=== PATIENT | female | born 1990 | race Caucasian/White ===

== ENCOUNTER 2016-09-17 15:55 | Emergency (ER) | payer MEDICAID ==
[~2016-09-17] VITALS: Ht 152.4 cm; Wt 58.5 kg
[~2016-09-17 15:55] MED LIST: PREN-39 PO
[2016-09-17 15:57] VITALS: Ht 152.4 cm; Wt 58.5 kg
--- NOTE | 2016-09-17 16:25 | ERD ---
ER Documentation Chief Complaint Date/Time DATE: 09/17/16 TIME: 16:24 Chief Complaint Complains of abdominal pain HPI 25-year-old female otherwise healthy complains of epigastric abdominal pain and right flank pain that started yesterday, she describes as achy, moderate, intermittent. She has not had anything for the pain yet. She denies fevers, chills, vomiting, diarrhea. ROS All systems reviewed and are negative except as per history of present illness. Medications Home Meds Active Scripts Omeprazole* (Omeprazole*) 20 Mg Capsule.dr, 20 MG PO DAILY, #60 Prov:SMOOTH GALVAN PA-C 09/17/16 Ranitidine Hcl* (Zantac*) 150 Mg Tablet, 150 MG PO BID Y for EPIGASTRIC PAIN, # 60 TAB Prov:SMOOTH GALVAN PA-C 09/17/16 Reported Medications Vits W-Ca,Fe,Fa(<1MG) ( Vitamins) 1 Tab Tablet, 1 TAB PO 04/30/14 Allergies Allergies: Coded Allergies: No Known Allergy (Unverified , 04/30/14) PMhx/Soc Hx Alcohol Use: No Hx Substance Use: No Hx Tobacco Use: No Smoking Status: Never smoker Physical Exam Vitals Vital Signs Date Time Temp Pulse Resp B/P Pulse Ox O2 Delivery O2 Flow Rate FiO2 09/17/16 15:57 98.0 73 20 146/89 98 Physical Exam General: Well-developed, well-nourished. The patient appears in no acute distress. HEENT: Head is normocephalic, atraumatic. No scleral icterus. Neck: Supple. Nontender. Lungs: Clear to auscultation. Normal air movement. Heart: Regular rate and rhythm. S1 and S2 are normal. No murmurs, gallops, or rubs. Abdomen: Soft, tender in epigastric region, and mild CVA tenderness on right side, nondistended. Bowel sounds are normoactive. Extremities: No clubbing or cyanosis. Normal pulses. Moving extremities x 4. No weakness. Neurologic: Alert and oriented 3. No focal deficits. Skin: Normal turgor. No rash or lesions. Result Diagram: 09/17/16 1640 09/17/16 1640 Results 24 hrs Laboratory Tests Test 09/17/16 16:40 White Blood Count 9.610^3/ul Red Blood Count 4.6710^6/ul Hemoglobin 14.0g/dl Hematocrit 42.2% Mean Corpuscular Volume 90.4fl Mean Corpuscular Hemoglobin 30.0pg Mean Corpuscular Hemoglobin Concent 33.2g/dl Red Cell Distribution Width 12.3% Platelet Count 77794^3/UL Mean Platelet Volume 10.5fl Neutrophils % 56.7% Lymphocytes % 32.9% Monocytes % 8.6% Eosinophils % 0.9% Basophils % 0.4% Nucleated Red Blood Cells % 0.0/100WBC Neutrophils # 5.510^3/ul Lymphocytes # 3.210^3/ul Monocytes # 0.810^3/ul Eosinophils # 0.110^3/ul Basophils # 0.010^3/ul Nucleated Red Blood Cells # 0.010^3/ul Urine Color YELLOW Urine Clarity CLEAR Urine pH 5.5 Urine Specific [employer] 1.025 Urine Ketones NEGATIVE Urine Nitrite NEGATIVE Urine Bilirubin NEGATIVE Urine Urobilinogen 0.2 E.U./dL Urine Leukocyte Esterase NEGATIVE Urine Hemoglobin NEGATIVE Urine Glucose NEGATIVE% Urine Total Protein NEGATIVE Sodium Level 139mmol/L Potassium Level 3.9mmol/L Chloride Level 103mmol/L Carbon Dioxide Level 27mmol/L Anion Gap 13 Blood Urea Nitrogen 12mg/dl Creatinine 0.68mg/dl Glucose Level 127mg/dl Calcium Level 9.5mg/dl Total Bilirubin 0.2mg/dl Direct Bilirubin 0.00mg/dl Indirect Bilirubin 0.2mg/dl Aspartate Amino Transf (AST/SGOT) 33IU/L Alanine Aminotransferase (ALT/SGPT) 57IU/L Alkaline Phosphatase 97IU/L Total Protein 7.8g/dl Albumin 4.9g/dl Globulin 2.90g/dl Albumin/Globulin Ratio 1.68 Lipase 121U/L Current Medications Medications (Trade) Dose Ordered Sig/Bernarda Route PRN Reason Start Time Stop Time Status Last Admin Dose Admin Acetaminophen/ Hydrocodone Bitart ([place] (5/325)) 1 tab ONCE ONCE PO 09/17/16 16:30 1817 16:31 DC 09/17/16 16:40 Miscellaneous Medication (Gi Cocktail (2)) 40 ml ONCE ONCE PO 09/17/16 17:30 17 17:31 DC 09/17/16 17:43 Urine was negative. DIAGNOSTIC IMAGING REPORT Patient: VARSHA COOK : 1990 Age: 25 Sex: F MR #: [id number] DOS: 09/17/16 1721 Ordering MD: SMOOTH GALVAN PA-C Location: [facility] Room/Bed: PROCEDURE: US Abdomen. CLINICAL INDICATION: abdominal pain TECHNIQUE: Multiple real-time images were acquired of the patient's right upper quadrant abdomen and retroperitoneum utilizing a high resolution transducer. COMPARISON: None FINDINGS: The liver demonstrates increased echogenicity. The liver is normal in size and no focal solid lesions are seen. The liver measures 15.4 cm in length. The portal vein is patent with normal direction of flow. No intrahepatic biliary dilatation is seen. No gallstones are identified within the gallbladder. There is no pericholecystic fluid or gallbladder wall thickening. The common bile duct measures 2.6 mm in maximal dimension. The visualized portions of the pancreas are unremarkable. The tail of the pancreas is not seen. No free fluid is identified. The right kidney is normal in size, and demonstrate normal echogenicity and cortical thickness. The right kidney measures 9.1 cm in long dimension. There is no evidence of hydronephrosis. There are no kidney stones. RPTAT: AA IMPRESSION: Fatty infiltration of the liver. No evidence of gallstones. .Roderick Conn MD, MD Date Time Electronically viewed and signed by .Roderick Conn MD, on 09/17/2016 17: 43 .S/ CC: SMOOTH GALVAN PA-C Procedures/MDM ED course: Blood and urine were obtained. The patient was medicated with [place] for pain.' She still complained of pain, therefore was given a GI cocktail, she states that her pain drastically improved. Serial abdominal examinations were done, she was feeling much better. MDM: 25-year-old female complains of epigastric and right flank pain that started yesterday, patient's abdominal examination shows epigastric tenderness. Labs were obtained, as there is no evidence of leukocytosis, no transaminitis , no evidence of pancreatitis. Urine was negative for infection. At this time CT imaging radiation risks likely outweigh the benefits, suspicion for appendicitis is low, bowel obstruction, kidney stones. I believe that her symptoms are likely from gastritis versus GERD as she responded well to a GI cocktail. She was informed that she has hepatic steatosis that was seen on ultrasound, however no gallstones. She was given dietary precautions, and will be given ranitidine and omeprazole for home. She is to return for any worsening or new symptoms. Departure Diagnosis: Primary Impression: Abdominal pain Condition: SMOOTH Keen PA-C Sep 17, 2016 16:25
[2016-09-17] MEDS ORDERED: HYDROCODONE/APAP (5/325) TAB PO ONE (16:30)
[2016-09-17 16:43] LABS: ADD SCAN DIFF NO
[2016-09-17 16:45] LABS: BASOPHILS % 0.4 % (0.0-2.0); EOSINOPHILS # 0.1 10^3/ul (0.0-0.5); EOSINOPHILS % 0.9 % (0.0-7.0); HEMATOCRIT 42.2 % (37.0-47.0); LYMPHOCYTES # 3.2 10^3/ul (0.8-2.9); LYMPHOCYTES % 32.9 % (15.0-51.0); MEAN CORPUSCULAR HGB CONC 33.2 g/dl (32.0-37.0); MEAN CORPUSCULAR VOLUME 90.4 fl (82.0-101.0); MEAN PLATELET VOLUME 10.5 fl (7.4-10.4); MONOCYTE # 0.8 10^3/ul (0.3-0.9); MONOCYTES % 8.6 % (0.0-11.0); NEUTROPHIL # 5.5 10^3/ul (1.6-7.5); NEUTROPHILS % 56.7 % (39.0-77.0); PLATELET COUNT 236 10^3/UL (140-415); RED BLOOD COUNT 4.67 10^6/ul (4.20-5.40); RED CELL DISTRIBUTION WIDTH 12.3 % (11.5-14.5); WHITE BLOOD COUNT 9.6 10^3/ul (4.8-10.8)
[2016-09-17 17:03] LABS: ADD UMIC NO; UR BILIRUBIN (Dip) NEGATIVE (NEGATIVE); UR BLOOD (Dip) NEGATIVE (NEGATIVE); UR CLARITY CLEAR (CLEAR); UR COLOR YELLOW (YELLOW); UR GLUCOSE (Dip) NEGATIVE (NEGATIVE); UR KETONES (Dip) NEGATIVE (NEGATIVE); UR LEUKOCYTE ESTERASE (Dip) NEGATIVE (NEGATIVE); UR NITRITE (Dip) NEGATIVE (NEGATIVE); UR TOTAL PROTEIN (Dip) NEGATIVE (NEGATIVE); UR UROBILINOGEN (Dip) 0.2 E.U./dL (0.1-1.0)
[2016-09-17 17:05] LABS: ALBUMIN 4.9 g/dl (3.3-4.9); ALBUMIN/GLOBULIN RATIO 1.68; BILIRUBIN,INDIRECT 0.2 mg/dl (0-1.1); BILIRUBIN,TOTAL 0.2 mg/dl (0.2-1.3); CALCIUM 9.5 mg/dl (8.4-10.2); CREATININE 0.68 mg/dl (0.44-1.00); POTASSIUM 3.9 mmol/L (3.5-5.1); TOTAL PROTEIN 7.8 g/dl (6.1-8.1)
[2016-09-17] MEDS ORDERED: LIDOCAINE/MYLANTA 40 ML BTL PO ONE (17:30)
[2016-09-17] MEDS ORDERED: RANI150T9 PO (17:44)
[2016-09-17] MEDS ORDERED: OMEP20CA16 PO (17:44)
--- NOTE | 2016-09-17 17:44 | RADRPT ---
PROCEDURE: US Abdomen. CLINICAL INDICATION: abdominal pain TECHNIQUE: Multiple real-time images were acquired of the patient's right upper quadrant abdomen a nd retroperitoneum utilizing a high resolution transducer. COMPARISON: None FINDINGS: The liver demonstrates increased echogenicity. The liver is normal in size and no focal solid lesio ns are seen. The liver measures 15.4 cm in length. The portal vein is patent with normal direction o f flow. No intrahepatic biliary dilatation is seen. No gallstones are identified within the gallbladder. There is no pericholecystic fluid or gallbladd er wall thickening. The common bile duct measures 2.6 mm in maximal dimension. The visualized portions of the pancreas are unremarkable. The tail of the pancreas is not seen. No free fluid is identified. The right kidney is normal in size, and demonstrate normal echogenicity and cortical thickness. The right kidney measures 9.1 cm in long dimension. There is no evidence of hydronephrosis. There are no kidney stones. RPTAT: AA IMPRESSION: Fatty infiltration of the liver. No evidence of gallstones. .Roderick Conn MD, Date Time Electronically viewed and signed by .Roderick Conn MD, on 09/17/2016 17:43 .S/
== END 2016-09-17 17:52 | disposition home or self-care (01) ==
LOC: FTE 15:55
DX: R10.13 Epigastric pain (principal)
CPT/HCPCS: 36415; 76705; 80053; 81003; 83690; 85025; Z7502; Z7610

== ENCOUNTER → 2017-02-05 22:49 | Emergency (ER) | END | disposition left against medical advice (07) ==

== ENCOUNTER 2017-09-05 03:42 | Emergency (ER) | END 2017-09-05 05:56 | disposition home or self-care (01) ==

== ENCOUNTER 2017-12-21 20:45 | Emergency (ER) | END 2017-12-22 01:19 | disposition home or self-care (01) ==

== ENCOUNTER 2018-05-19 10:28 | Emergency (ER) | payer MEDICAID ==
[~2018-05-19] VITALS: Ht 157.5 cm; Wt 59.5 kg
[~2018-05-19 10:28] MED LIST changes: +ACET500C5 PO; +CYCL10TA7 PO; +RANI150T35 PO
[2018-05-19 10:33] VITALS: BP 119/70; PULSE 82; RESP 18; Ht 157.5 cm; Wt 59.5 kg
--- NOTE | 2018-05-19 10:59 | ERD ---
ER Documentation Chief Complaint Chief Complaint lt calf pain x 1 week , 4 weeks preg HPI 27-year-old female, presents emergency department, complaining of persistent left calf pain for 1 week. The pain is described as dull, deep, 4/10. No medications taken for pain. The patient is currently 4 weeks , she denies any trauma, no recent prolonged traveling. No personal or family history of DVT or pulmonary embolism, however, the patient is concerned about a possible blood clot. She denies chest pain, no shortness of breath. In regards of the , the patient denies abdominal pain, no vaginal bleeding. ROS All systems reviewed and are negative except as per history of present illness. Medications Home Meds Active Scripts Acetaminophen* (Tylenol*) 325 Mg Tablet, 1 TAB PO Q6 PRN for PAIN AND OR ELEVATED TEMP, #20 TAB Prov:DIRK BOLDEN MD 05/19/18 Ranitidine Hcl* (Zantac*) 150 Mg Tablet, 150 MG PO BID PRN for EPIGASTRIC PAIN, #60 TAB Prov:EZEKIEL TORRES MD 05/12/18 Cyclobenzaprine Hcl* (Cyclobenzaprine Hcl*) 10 Mg Tablet, 10 MG PO TID, #15 TAB Prov:AMIRA MACARIO MD 12/22/17 Acetaminophen* (Tylophen*) 500 Mg Capsule, 1 CAP PO Q6H PRN for PAIN AND OR ELEVATED TEMP, #20 CAP Prov:STEFANI VERA NP 09/05/17 Reported Medications Vits W-Ca,Fe,Fa(<1MG) ( Vitamins) 1 Tab Tablet, 1 TAB PO 04/30/14 Allergies Allergies: Coded Allergies: No Known Allergy (Unverified , 05/19/18) PMhx/Soc History of Surgery: Yes ( x1) Anesthesia Reaction: No Hx Neurological Disorder: No Hx Respiratory Disorders: No Hx Cardiac Disorders: No Hx Psychiatric Problems: No Hx Miscellaneous Medical Probl: Yes (gallstones, gastritis) Hx Alcohol Use: No Hx Substance Use: No Hx Tobacco Use: No Smoking Status: Never smoker FmHx Family History: No diabetes, No coronary disease Physical Exam Vitals Vital Signs Date Temp Pulse Resp B/P (MAP) Pulse Ox O2 O2 Flow FiO2 Time Delivery Rate 05/19/18 98.6 82 18 119/70 100 10:33 (86) Physical Exam Const: No acute distress Head: Atraumatic Eyes: Normal Conjunctiva ENT: Normal External Ears, Nose and Mouth. Neck: Full range of motion. No meningismus. Resp: Clear to auscultation bilaterally Cardio: Regular rate and rhythm, no murmurs Abd: Soft, non tender, non distended. Normal bowel sounds Skin: No petechiae or rashes Back: No midline or flank tenderness Ext: No cyanosis, or edema Neur: Awake and alert Psych: Normal Mood and Affect Results 24 hrs DIAGNOSTIC IMAGING REPORT Patient: VARSHA COOK : 1990 Age: 27 Sex: F MR #: [id number] DOS: 05/19/18 1058 Ordering MD: DRIK BOLDEN MD Location: [facility] Room/Bed: PROCEDURE: US Lower extremity Venous. CLINICAL INDICATION: Pain and swelling, popliteal pain TECHNIQUE: Multiple sonographic images of the left lower extremity deep venous system was obtained utilizing grayscale, color-flow, compressive sonography and doppler imaging with augmentation. The images were reviewed on a PACS workstation. COMPARISON: None. FINDINGS: There is normal compressibility and flow within the left common femoral, deep f emoral, superficial femoral, posterior tibial, peroneal and popliteal veins. IMPRESSION: No sonographic evidence for deep venous thrombosis. No sonographic abnormalities are identified in the area of pain in the left calf. RPTAT:AAJJ Physician J Carlos Date Time Electronically viewed and signed by Loco Ramírez Physician on 05/19/2018 12:20 MC/ CC: DIRK BOLDEN MD [phone] Departure Diagnosis: Primary Impression: Pain of left leg Additional Impression: Condition: Stable Additional Instructions: Muchas andrey por [facility] para stuart servicio. Esperamos que en stuart visita a la dagmar de emergencia stuart problema medico haya sido solucionado y que se sienta mucho mejor. Para estar seguros que stuart mejoria sigue en proceso, le pedimos el favor de hacer corby emerson de seguimiento medico con stuart doctor primario en los proximos 2-4 chowdhury. Lleve con usted estos documentos y las medicinas recetadas. Si aubrie sintomas empeoran, NO SE ESPERE, por favor regrese a dagmar de emergencia INMEDIATAMENTE. En lan que usted no tenga un mdico de atencin primaria: Llame al mdico o clnica comunitaria de referencia que aparece abajo elissa las horas de consultorio para hacer corby emerson para que le vean. CLINICAS: [facility] [phone] [address] [phone] [facility] [phone] [facility] [phone] [address] [facility] [phone] [address] [facility] [phone] DIRK DUMONT MD May 19, 2018 10:59
[2018-05-19] MEDS ORDERED: ACET325T33 PO (12:25)
== END 2018-05-19 13:02 | disposition home or self-care (01) ==
LOC: FTE 10:28
DX: O99.89 Other specified diseases and conditions complicating pregnancy, childbirth and the puerperium (principal); M79.605 Pain in left leg; Z3A.01 Less than 8 weeks gestation of pregnancy
CPT/HCPCS: 93971; Z7502

== ENCOUNTER 2018-07-07 17:05 | Inpatient (IN) | payer MEDICAID ==
[~2018-07-07] VITALS: Ht 152.4 cm; Wt 57.3 kg
[~2018-07-07 17:05] MED LIST changes: +ACET325T33 PO
[2018-07-07] MEDS ORDERED: SOD CHLORIDE 0.9% 1,000 ML IV STA (17:17)
[2018-07-07] MEDS ORDERED: METOCLOPRAMIDE 10 MG INJ IV STA (17:17)
--- NOTE | 2018-07-07 17:48 | ERD ---
ER Documentation Chief Complaint Chief Complaint c/o right upper abd pain with active vomiting. 10 weeks HPI 27-year-old female 12 weeks presenting with epigastric and right upper quadrant abdominal pain that started today with associated nausea and vomiting. No fevers and chills. She states that she has a history of gallstones and that this feels like her gallstones. She has no diarrhea, hematochezia, melena, or constipation. Her pain is constant, no alleviating factors. Worse with oral intake. ROS All systems reviewed and are negative except as per history of present illness. Medications Home Meds Reported Medications Vit No.124/Iron/FA ( Vitamin Tablet) 1 Each Tablet, 1 EACH PO DAILY, TAB 07/07/18 Discontinued Reported Medications Vits W-Ca,Fe,Fa(<1MG) ( Vitamins) 1 Tab Tablet, 1 TAB PO 04/30/14 Discontinued Scripts Acetaminophen* (Tylenol*) 325 Mg Tablet, 1 TAB PO Q6 PRN for PAIN AND OR ELEVATED TEMP, #20 TAB Prov:DIRK BOLDEN MD 05/19/18 Ranitidine Hcl* (Zantac*) 150 Mg Tablet, 150 MG PO BID PRN for EPIGASTRIC PAIN, #60 TAB Prov:EZEKIEL TORRES MD 05/12/18 Cyclobenzaprine Hcl* (Cyclobenzaprine Hcl*) 10 Mg Tablet, 10 MG PO TID, #15 TAB Prov:AMIRA MACARIO MD 12/22/17 Acetaminophen* (Tylophen*) 500 Mg Capsule, 1 CAP PO Q6H PRN for PAIN AND OR ELEVATED TEMP, #20 CAP Prov:STEFANI VERA NP 09/05/17 Allergies Allergies: Coded Allergies: No Known Allergy (Unverified , 07/07/18) PMhx/Soc History of Surgery: Yes ( x1) Anesthesia Reaction: No Hx Neurological Disorder: No Hx Respiratory Disorders: No Hx Cardiac Disorders: No Hx Psychiatric Problems: No Hx Miscellaneous Medical Probl: Yes (gallstones, gastritis) Hx Alcohol Use: No Hx Substance Use: No Hx Tobacco Use: No Smoking Status: Never smoker FmHx Family History: No diabetes Physical Exam Vitals Vital Signs Date Temp Pulse Resp B/P (MAP) Pulse Ox O2 O2 Flow FiO2 Time Delivery Rate 07/07/18 98.3 99 20 105/74 100 Room Air 19:33 (84) 07/07/18 91 17 96/67 (77) 100 Room Air 18:23 07/07/18 99.5 111 20 130/76 98 17:13 (94) Physical Exam Const: Actively retching, nontoxic Head: Atraumatic Eyes: Normal Conjunctiva ENT: Normal External Ears, Nose and Mouth. Neck: Full range of motion. No meningismus. Resp: Clear to auscultation bilaterally Cardio: Regular rate and rhythm, no murmurs Abd: Soft, epigastric and right upper quadrant tenderness to palpation with positive Green sign. No McBurney's point tenderness. Gravid., No lower abdominal tenderness. Normal bowel sounds Skin: No petechiae or rashes Back: No midline or flank tenderness Ext: No cyanosis, or edema Neur: Awake and alert Psych: Normal Mood and Affect Result Diagram: 07/07/18 1738 07/07/18 1738 Results 24 hrs Laboratory Tests Test 07/07/18 17:25 07/07/18 17:30 07/07/18 17:38 Urine Color YELLOW Urine Clarity CLOUDY Urine pH 5.0 Urine Specific [place] 1.027 Urine Ketones TRACE mg/dL Urine Nitrite NEGATIVE mg/dL Urine Bilirubin NEGATIVE mg/dL Urine Urobilinogen NEGATIVE mg/dL Urine Leukocyte Esterase NEGATIVE [place]/ul Urine Microscopic RBC 39 /HPF Urine Microscopic WBC 0 /HPF Urine Squamous Epithelial Cells MODERATE /HPF Urine Calcium Oxalate Crystals MANY /HPF Urine Mucus FEW /HPF Urine Hemoglobin NEGATIVE mg/dL Urine Glucose NEGATIVE mg/dL Urine Total Protein NEGATIVE mg/dl POC Beta HCG, Qualitative POSITIVE White Blood Count 10.0 10^3/ul Red Blood Count 4.02 10^6/ul Hemoglobin 12.5 g/dl Hematocrit 36.1 % Mean Corpuscular Volume 89.8 fl Mean Corpuscular Hemoglobin 31.1 pg Mean Corpuscular 34.6 g/dl Hemoglobin Concent Red Cell Distribution Width 12.2 % Platelet Count 217 10^3/UL Mean Platelet Volume 10.1 fl Immature Granulocytes % 0.400 % Neutrophils % 48.5 % Lymphocytes % 36.2 % Monocytes % 7.4 % Eosinophils % 6.9 % Basophils % 0.6 % Nucleated Red Blood Cells % 0.0 /100WBC Immature Granulocytes # 0.040 10^3/ul Neutrophils # 4.9 10^3/ul Lymphocytes # 3.6 10^3/ul Monocytes # 0.7 10^3/ul Eosinophils # 0.7 10^3/ul Basophils # 0.1 10^3/ul Nucleated Red Blood Cells # 0.0 10^3/ul Sodium Level 139 mmol/L Potassium Level 3.4 mmol/L Chloride Level 107 mmol/L Carbon Dioxide Level 22 mmol/L Anion Gap 10 Blood Urea Nitrogen 9 mg/dl Creatinine 0.52 mg/dl Est Glomerular Filtrat > 60 mL/min Rate mL/min Glucose Level 115 mg/dl Calcium Level 9.7 mg/dl Total Bilirubin 0.3 mg/dl Direct Bilirubin 0.00 mg/dl Indirect Bilirubin 0.3 mg/dl Aspartate Amino Transf (AST/SGOT) 88 IU/L Alanine 215 IU/L Aminotransferase (ALT/SGPT) Alkaline Phosphatase 105 IU/L Total Protein 7.3 g/dl Albumin 3.9 g/dl Globulin 3.40 g/dl Albumin/Globulin Ratio 1.14 Lipase 256 U/L Current Medications Medications Dose Sig/Bernarda Start Time Status Last (Trade) Ordered Route PRN Stop Time Admin Dose Reason Admin Sodium 1,000 ml @ Q1H STAT 07/07/18 DC 07/07/18 Chloride 1,000 mls/hr IV 17:17 07/07/18 17:34 18:16 10 mg ONCE STAT 07/07/18 DC 07/07/18 Metoclopramid IV 17:17 07/07/18 17:34 e HCl 17:18 (Reglan) Ondansetron 4 mg BRIDGE ORDER 07/07/18 HCl (Zofran PRN IV 19:30 07/08/18 Inj) NAUSEA/VOMITI 19:29 NG 650 mg ER BRIDGE 07/07/18 Acetaminophen PRN PO 19:30 07/08/18 (Tylenol .MILD PAIN 19:29 Tab) 1-3 OR TEMP IV Flush 3 ml PER 07/07/18 (NS 3 ml) PROTOCOL IV 20:00 Morphine 2 mg Q4H PRN 07/07/18 Sulfate IV .SEVERE 20:00 (morphine) PAIN 7-10 Procedures/MDM EMERGENT LABS AND DIAGNOSTIC STUDIES: Lab Results above were reviewed and interpreted by me. CBC: no anemia or evidence of infection CMP: Transaminitis, new since prior visit. No evidence of clinically significant electrolyte abnormality, acidosis, renal failure, hypoglycemia Lipase: no evidence of pancreatitis UA: no evidence of infection Radiology Results as interpreted by Radiology below were reviewed by Manfred Pinedo MD: Ultrasound right upper quadrant: Evidence of CBD dilation, no evidence of minal cystitis Initial Nursing notes reviewed. Previous Medical Records requested via the Electronic Health Record. EMERGENCY DEPARTMENT COURSE / MEDICAL DECISION MAKING: patient is presenting with right upper quadrant pain and vomiting, concerning for possible acute cholecystitis versus symptomatic gallstones versus choledocholithiasis versus pancreatitis. Vitals were notable for tachycardia. IV fluids were given. Antiemetics given as well with improvement of symptoms. Workup shows evidence of CBD dilation, concerning for choledocholithiasis. Patient will be admitted to the hospitalist for further workup. Accepting Care Team: Current data and ongoing care discussed. Time: Time of admission Primary Provider: Dr. Bergman Consulting: none Outstanding Data: none Departure Diagnosis: Primary Impression: Choledocholithiasis LES PINEDO MD Jul 07, 2018 17:48
[2018-07-07] MEDS ORDERED: PREN-93 PO (18:11)
[2018-07-07] MEDS ORDERED: ACETAMINOPHEN 325 MG TAB PO PRN (19:30)
[2018-07-07] MEDS ORDERED: ONDANSETRON 4 MG INJ IV PRN (19:30)
--- NOTE | 2018-07-07 19:37 | HP ---
Date/Time of Note Date/Time of Note DATE: 07/07/18 TIME: 19:34 Assessment/Plan VTE Prophylaxis Pharmacological prophylaxis: heparin Lines/Catheters [facility] Saline Lock Assessment/Plan Hospital Course 27 yo female currently presents with abdominal pain - On US found to have gall stones and dilated CBD concerning for minal docholithiasis, however no stone is seen on ultrasound - Given the spontaneous resolution of her symptoms, I wonder if the stone spontaneously passed - No infectious symptoms or imaging findings to suggest cholangitis so no need for abx - Will consult GI for consideration of ERCP - MRCP pending Result Diagram: 07/07/18 1738 07/07/18 1738 Results 24hrs Laboratory Tests Test 07/07/18 17:25 07/07/18 17:30 07/07/18 17:38 Urine Color YELLOW Urine Clarity CLOUDY A Urine pH 5.0 Urine Specific [place] 1.027 Urine Ketones TRACE A Urine Nitrite NEGATIVE Urine Bilirubin NEGATIVE Urine Urobilinogen NEGATIVE Urine Leukocyte Esterase NEGATIVE Urine Microscopic RBC 39 H Urine Microscopic WBC 0 Urine Squamous Epithelial Cells MODERATE Urine Calcium Oxalate Crystals MANY A Urine Mucus FEW A Urine Hemoglobin NEGATIVE Urine Glucose NEGATIVE Urine Total Protein NEGATIVE POC Beta HCG, Qualitative POSITIVE H White Blood Count 10.0 # Red Blood Count 4.02 L Hemoglobin 12.5 Hematocrit 36.1 L Mean Corpuscular Volume 89.8 Mean Corpuscular Hemoglobin 31.1 Mean Corpuscular Hemoglobin Concent 34.6 Red Cell Distribution Width 12.2 Platelet Count 217 Mean Platelet Volume 10.1 Immature Granulocytes % 0.400 Neutrophils % 48.5 Lymphocytes % 36.2 Monocytes % 7.4 Eosinophils % 6.9 Basophils % 0.6 Nucleated Red Blood Cells % 0.0 Immature Granulocytes # 0.040 H Neutrophils # 4.9 Lymphocytes # 3.6 H Monocytes # 0.7 Eosinophils # 0.7 H Basophils # 0.1 Nucleated Red Blood Cells # 0.0 Sodium Level 139 Potassium Level 3.4 L Chloride Level 107 Carbon Dioxide Level 22 Anion Gap 10 Blood Urea Nitrogen 9 Creatinine 0.52 Est Glomerular Filtrat Rate mL/min > 60 Glucose Level 115 Calcium Level 9.7 Total Bilirubin 0.3 Direct Bilirubin 0.00 Indirect Bilirubin 0.3 Aspartate Amino Transf (AST/SGOT) 88 H Alanine Aminotransferase (ALT/SGPT) 215 H Alkaline Phosphatase 105 Total Protein 7.3 Albumin 3.9 Globulin 3.40 H Albumin/Globulin Ratio 1.14 Lipase 256 HPI/ROS Admit Date/Time Admit Date/Time Hx of Present Illness 27 yo female currently presents with abdominal pain Pain start acutely this afternoon. Was very severe. Nausea/vomiting associated. Came to ED. Here US shows dilated CBD and gall stones. Pain resolved within a few hours. Currently feels completely normal. No fevers, chills. No other complaints ROS Constitutional: no complaints, improved Eyes: no complaints ENT: no complaints Respiratory: no complaints Cardiovascular: no complaints Gastrointestinal: no complaints Genitourinary: no complaints Musculoskeletal: no complaints Skin: no complaints Neurologic: no complaints Endocrine: no complaints Lymphatic: no complaints Psychological: no complaints, nl mood/affect Immunologic: no complaints PMH/Family/Social Past Medical History Medical History: no pertinent history Medications Current Medications Ondansetron HCl (Zofran Inj) 4 mg BRIDGE ORDER PRN IV NAUSEA/VOMITING; Start 07/07/18 at 19:30; Stop 07/08/18 at 19:29 Acetaminophen (Tylenol Tab) 650 mg ER BRIDGE PRN PO .MILD PAIN 1-3 OR TEMP; Start 07/07/18 at 19:30; Stop 07/08/18 at 19:29 Coded Allergies: No Known Allergy (Unverified , 07/07/18) Past Surgical History Past Surgical Hx: no surgical history Family History Significant Family History: no pertinent family hx Social History Alcohol Use: none Smoking Status: Never smoker Drug Use: none Exam/Review of Systems Vital Signs Vitals Vital Signs Date Temp Pulse Resp B/P (MAP) Pulse Ox O2 O2 Flow FiO2 Time Delivery Rate 07/07/18 91 17 96/67 (77) 100 Room Air 18:23 07/07/18 99.5 17:13 Exam Constitutional: alert, oriented, well developed Psych: no complaints, nl mood/affect Head: normocephalic, atraumatic Eyes: nl conjunctiva, EOMI, nl lids, nl sclera, PERRL ENMT: nl external ears & nose, nl lips & teeth, nl nasal mucosa & septum Neck: supple, non-tender Respiratory: clear to auscultation, normal air movement Cardiovascular: regular rate and rhythm, nl pulses Gastrointestinal: soft, nl liver, spleen, non-tender Musculoskeletal: nl extremities to inspection Extremities: normal pulses Neurological: GLOBE CHANGER II-XII intact, nl mental status, nl speech, nl strength Skin: nl turgor; No rash or lesions Lymph: nl lymph nodes ADORE DUNN MD Jul 07, 2018 19:37
[2018-07-07] MEDS ORDERED: NACL 0.9% 3 ML SYG IV SCH (20:00)
[2018-07-07] MEDS ORDERED: morphine 2 MG INJ IV PRN (20:00)
[2018-07-07 20:36] VITALS: BP 102/62; PULSE 87; RESP 18
[2018-07-07 22:20] VITALS: Ht 152.4 cm; Wt 57.3 kg
[2018-07-08 01:57] VITALS: BP 96/62; PULSE 79; RESP 18
[2018-07-08 08:03] VITALS: BP 90/61; PULSE 71; RESP 18
[2018-07-08 15:09] VITALS: BP 107/53; PULSE 78; RESP 18
--- NOTE | 2018-07-08 17:05 | PN ---
Date/Time of Note Date/Time of Note DATE: 07/08/18 TIME: 17:03 Assessment/Plan VTE Prophylaxis Risk score (from Ns)>0 risk: 1 SCD applied (from Nsg): Yes Pharmacological prophylaxis: NA/contraindicated Pharm contraindication: low risk/ambulating Lines/Catheters IV Catheter Type (from [facility]): Saline Lock Urinary Cath still in place: No Assessment/Plan Hospital Course 27 yo female currently presents with abdominal pain - On US found to have gall stones and dilated CBD concerning for choledocholithiasis, however no stone is seen on ultrasound -MRCP shows cholelithiasis and mildly dilated common bile duct with no evidence of choledocholithiasis -Patient has had spontaneous resolution of her pain which suggest passing of stone but LFTs have increased this morning -GI consultation obtained -Follow-up on a.m. LFTs Result Diagram: 07/08/18 0425 07/08/18 0425 Results 24hrs Laboratory Tests Test 07/07/18 17:25 07/07/18 17:30 07/07/18 17:38 07/08/18 04:25 Urine Color YELLOW Urine Clarity CLOUDY A Urine pH 5.0 Urine Specific [place] 1.027 Urine Ketones TRACE A Urine Nitrite NEGATIVE Urine Bilirubin NEGATIVE Urine Urobilinogen NEGATIVE Urine Leukocyte Esterase NEGATIVE Urine Microscopic RBC 39 H Urine Microscopic WBC 0 Urine Squamous MODERATE Epithelial Cells Urine Calcium Oxalate MANY A Crystals Urine Mucus FEW A Urine Hemoglobin NEGATIVE Urine Glucose NEGATIVE Urine Total Protein NEGATIVE POC Beta HCG, POSITIVE H Qualitative White Blood Count 10.0 # 8.1 Red Blood Count 4.02 L 3.67 L Hemoglobin 12.5 11.3 L Hematocrit 36.1 L 33.5 L Mean Corpuscular Volume 89.8 91.3 Mean Corpuscular 31.1 30.8 Hemoglobin Mean Corpuscular 34.6 33.7 Hemoglobin Concent Red Cell Distribution 12.2 12.4 Width Platelet Count 217 195 Mean Platelet Volume 10.1 10.9 H Immature Granulocytes % 0.400 0.400 Neutrophils % 48.5 50.6 Lymphocytes % 36.2 31.0 Monocytes % 7.4 9.0 Eosinophils % 6.9 8.4 H Basophils % 0.6 0.6 Nucleated Red Blood 0.0 0.0 Cells % Immature Granulocytes # 0.040 H 0.030 Neutrophils # 4.9 4.1 Lymphocytes # 3.6 H 2.5 Monocytes # 0.7 0.7 Eosinophils # 0.7 H 0.7 H Basophils # 0.1 0.1 Nucleated Red Blood 0.0 0.0 Cells # Sodium Level 139 136 Potassium Level 3.4 L 3.6 Chloride Level 107 107 Carbon Dioxide Level 22 21 Anion Gap 10 8 Blood Urea Nitrogen 9 5 L Creatinine 0.52 0.41 L Est Glomerular Filtrat > 60 > 60 Rate mL/min Glucose Level 115 80 Calcium Level 9.7 8.9 Total Bilirubin 0.3 0.4 Direct Bilirubin 0.00 0.00 Indirect Bilirubin 0.3 0.4 Aspartate Amino 88 H 243 H Transf (AST/SGOT) Alanine 215 H 354 H Aminotransferase (ALT/SG PT) Alkaline Phosphatase 105 96 Total Protein 7.3 5.6 #L Albumin 3.9 3.0 L Globulin 3.40 H 2.60 Albumin/Globulin Ratio 1.14 1.15 Lipase 256 Hemoglobin A1c 5.3 Hepatitis B Surface NEGATIVE Antigen Hepatitis B Core NEGATIVE Total Antibody Hepatitis C Antibody NEGATIVE Subjective 24 Hr Interval Summary Constitutional: no complaints Exam/Review of Systems Exam Vitals Vital Signs Date Temp Pulse Resp B/P (MAP) Pulse Ox O2 O2 Flow FiO2 Time Delivery Rate 07/08/18 98.2 78 18 107/53 98 Room Air 15:09 (71) Intake and Output 07/07/18 07/07/18 07/08/18 1414:59 22:59 06:59 IntakeIntake Total 1000 ml BalanceBalance 1000 ml Constitutional: alert, oriented Respiratory: clear to auscultation Cardiovascular: regular rate and rhythm Gastrointestinal: soft; No distended Musculoskeletal: nl extremities to inspection Results Results 24hrs Laboratory Tests Test 07/07/18 17:25 07/07/18 17:30 07/07/18 17:38 07/08/18 04:25 Urine Color YELLOW Urine Clarity CLOUDY A Urine pH 5.0 Urine Specific [place] 1.027 Urine Ketones TRACE A Urine Nitrite NEGATIVE Urine Bilirubin NEGATIVE Urine Urobilinogen NEGATIVE Urine Leukocyte Esterase NEGATIVE Urine Microscopic RBC 39 H Urine Microscopic WBC 0 Urine Squamous MODERATE Epithelial Cells Urine Calcium Oxalate MANY A Crystals Urine Mucus FEW A Urine Hemoglobin NEGATIVE Urine Glucose NEGATIVE Urine Total Protein NEGATIVE POC Beta HCG, POSITIVE H Qualitative White Blood Count 10.0 # 8.1 Red Blood Count 4.02 L 3.67 L Hemoglobin 12.5 11.3 L Hematocrit 36.1 L 33.5 L Mean Corpuscular Volume 89.8 91.3 Mean Corpuscular 31.1 30.8 Hemoglobin Mean Corpuscular 34.6 33.7 Hemoglobin Concent Red Cell Distribution 12.2 12.4 Width Platelet Count 217 195 Mean Platelet Volume 10.1 10.9 H Immature Granulocytes % 0.400 0.400 Neutrophils % 48.5 50.6 Lymphocytes % 36.2 31.0 Monocytes % 7.4 9.0 Eosinophils % 6.9 8.4 H Basophils % 0.6 0.6 Nucleated Red Blood 0.0 0.0 Cells % Immature Granulocytes # 0.040 H 0.030 Neutrophils # 4.9 4.1 Lymphocytes # 3.6 H 2.5 Monocytes # 0.7 0.7 Eosinophils # 0.7 H 0.7 H Basophils # 0.1 0.1 Nucleated Red Blood 0.0 0.0 Cells # Sodium Level 139 136 Potassium Level 3.4 L 3.6 Chloride Level 107 107 Carbon Dioxide Level 22 21 Anion Gap 10 8 Blood Urea Nitrogen 9 5 L Creatinine 0.52 0.41 L Est Glomerular Filtrat > 60 > 60 Rate mL/min Glucose Level 115 80 Calcium Level 9.7 8.9 Total Bilirubin 0.3 0.4 Direct Bilirubin 0.00 0.00 Indirect Bilirubin 0.3 0.4 Aspartate Amino 88 H 243 H Transf (AST/SGOT) Alanine 215 H 354 H Aminotransferase (ALT/SG PT) Alkaline Phosphatase 105 96 Total Protein 7.3 5.6 #L Albumin 3.9 3.0 L Globulin 3.40 H 2.60 Albumin/Globulin Ratio 1.14 1.15 Lipase 256 Hemoglobin A1c 5.3 Hepatitis B Surface NEGATIVE Antigen Hepatitis B Core NEGATIVE Total Antibody Hepatitis C Antibody NEGATIVE Medications Medication Current Medications Ondansetron HCl (Zofran Inj) 4 mg BRIDGE ORDER PRN IV NAUSEA/VOMITING; Start 07/07/18 at 19:30; Stop 07/08/18 at 19:29 Acetaminophen (Tylenol Tab) 650 mg ER BRIDGE PRN PO .MILD PAIN 1-3 OR TEMP; Start 07/07/18 at 19:30; Stop 07/08/18 at 19:29 IV Flush (NS 3 ml) 3 ml PER PROTOCOL IV ; Start 07/07/18 at 20:00 Morphine Sulfate (morphine) 2 mg Q4H PRN IV .SEVERE PAIN 7-10; Start 07/07/18 at 20:00 EVELINE SIERRA Jul 08, 2018 17:05
[2018-07-08 19:57] VITALS: BP 103/60; PULSE 90; RESP 18
[2018-07-09 01:52] VITALS: BP 93/61; PULSE 71; RESP 18
[2018-07-09 07:49] VITALS: BP 92/51; PULSE 74; RESP 18
[2018-07-09] MEDS ORDERED: POTASSIUM CHLORIDE (SR) 20 MEQ TAB PO STA (10:51)
--- NOTE | 2018-07-09 13:38 | CONS ---
Assessment/Plan Assessment/Plan Hospital Course (Demo Recall) Summary Assessment and Plan: Assessment: Epigastric pain associated with n/v- resolved Elevated LFTs- trending down (normal T. Bili/Alk phos) -Hepatitis panel negative -Cholelithiasis with mildly dilated common bile duct. No choledocholithiasis seen by ultrasound -MRCPcholelithiasis, mild we dilated common bile duct. No evidence of choledocholithiasis -Possible passing of stone Currently 12 weeks H/o GERD Plan: Diet as tolerated Monitor labs while hospitalized No plan for GI intervention If patient remains stable and is able to tolerate PO intake- ok to d/c from GI point of view Patient seen in collaboration with Dr. Hurley CC: KIMI HURLEY MD ; Consultation Date/Type/Reason Admit Date/Time Date of Consultation: Jul 09, 2018 Type of Consult GI Date/Time of Note DATE: 07/09/18 TIME: 13:06 Hx of Present Illness This is a 27-year-old female who is currently 12 weeks who presented to the hospital with complaints of epigastric pain associated with nausea and nonbloody vomiting times 1 day. Here a gallbladder ultrasound obtained showing cholelithiasis without evidence to suggest acute cholecystitis, mildly dilated common bile duct, no cholelithiasis seen on ultrasound and fatty liver. Additionally an MRI was obtained again showing mildly dilated common bile duct however no evidence of choledocholithiasis. There was a slight peak in LFTs yesterday they were again checked this morning and have decreased significantly. Of note throughout stay patient's bilirubin and alkaline phosphatase have been within normal limits. A hepatitis serology was checked and is negative. Time evaluation patient denies further episodes of nausea or vomiting she does complain of some acid reflux but overall tolerating her regular diet well. Denies episodes of vomiting throughout her . She does note a weight loss about 5 pounds she believes this is secondary to dietary changes additionally a urinalysis shows trace ketones. Given findings there is no plan for GI intervention as patient's overall symptoms are improving. Review of Systems: A 12 system, review was conducted and is negative except as noted in the HPI or here. Past Medical History Medical History: no pertinent history Home Meds Reported Medications Vit No.124/Iron/FA ( Vitamin Tablet) 1 Each Tablet, 1 EACH PO DAILY, TAB 07/07/18 Discontinued Reported Medications Vits W-Ca,Fe,Fa(<1MG) ( Vitamins) 1 Tab Tablet, 1 TAB PO 04/30/14 Discontinued Scripts Acetaminophen* (Tylenol*) 325 Mg Tablet, 1 TAB PO Q6 PRN for PAIN AND OR ELEVATED TEMP, #20 TAB Prov:DIRK BOLDEN MD 05/19/18 Ranitidine Hcl* (Zantac*) 150 Mg Tablet, 150 MG PO BID PRN for EPIGASTRIC PAIN, #60 TAB Prov:EZEKIEL TORRES MD 05/12/18 Cyclobenzaprine Hcl* (Cyclobenzaprine Hcl*) 10 Mg Tablet, 10 MG PO TID, #15 TAB Prov:AMIRA MACARIO MD 12/22/17 Acetaminophen* (Tylophen*) 500 Mg Capsule, 1 CAP PO Q6H PRN for PAIN AND OR ELEVATED TEMP, #20 CAP Prov:STEFANI VERA NP 09/05/17 Medications Current Medications IV Flush (NS 3 ml) 3 ml PER PROTOCOL IV ; Start 07/07/18 at 20:00 Morphine Sulfate (morphine) 2 mg Q4H PRN IV .SEVERE PAIN 7-10; Start 07/07/18 at 20:00 Allergies: Coded Allergies: No Known Allergy (Unverified , 07/07/18) Past Surgical History Past Surgical Hx: no surgical history Social History Alcohol Use: none Smoking Status: Never smoker Drug Use: none Exam/Review of Systems Exam Vitals Vital Signs Date Temp Pulse Resp B/P (MAP) Pulse Ox O2 O2 Flow FiO2 Time Delivery Rate 07/09/18 98.9 74 18 92/51 (65) 97 Room Air 07:49 Intake and Output 07/08/18 07/08/18 07/09/18 1515:00 23:00 07:00 IntakeIntake Total 840 ml 240 ml BalanceBalance 840 ml 240 ml Exam PHYSICAL EXAMINATION: GENERAL: Alert & oriented x 3, in no acute distress SKIN: No lesions. EYES: Pupils equal reactive to light, no discharge. EARS/NOSE AND THROAT: Ears normal, nose normal, oropharynx normal. NECK: Supple, no masses CHEST: Inspection within normal limits. CARDIOVASCULAR: Heart: Regular rate and rhythm, + murmurs RESPIRATORY: Lungs clear to auscultation GASTROINTESTINAL AND LIVER: Abdomen: Soft, non tenderness, non-distended, no hernias, no masses, no organomegaly, no ascites, no guarding, no rebound tenderness, normoactive bowel sounds. Rectal: Deferred. EXTREMITIES: No cyanosis, clubbing or edema. Results Result Diagram: 07/08/18 0425 07/09/18 0444 Results 24hrs Laboratory Tests Test 07/09/18 04:44 Sodium Level 137 Potassium Level 3.4 L Chloride Level 105 Carbon Dioxide Level 22 Anion Gap 10 Blood Urea Nitrogen 7 Creatinine 0.51 Est Glomerular Filtrat Rate mL/min > 60 Glucose Level 80 Calcium Level 9.2 Total Bilirubin 0.3 Direct Bilirubin 0.00 Indirect Bilirubin 0.3 Aspartate Amino Transf (AST/SGOT) 93 H Alanine Aminotransferase (ALT/SGPT) 266 H Alkaline Phosphatase 85 Total Protein 6.5 Albumin 3.5 Globulin 3.00 Albumin/Globulin Ratio 1.16 Medications Medication Current Medications IV Flush (NS 3 ml) 3 ml PER PROTOCOL IV ; Start 07/07/18 at 20:00 Morphine Sulfate (morphine) 2 mg Q4H PRN IV .SEVERE PAIN 7-10; Start 07/07/18 at 20:00 VIOLETA LAND Jul 09, 2018 13:16
--- NOTE | 2018-07-09 15:07 | PDOCDIS ---
Discharge Instructions CONDITION [id number] Patient Condition: [id number] Good HOME CARE INSTRUCTIONS: [id number] Diet Instructions: [id number] Regular ACTIVITY: [id number] Activity Restrictions: [id number] Avoid heavy lifting Do not operate Power Tool Avoid Heavy Housework FOLLOW UP/APPOINTMENTS Follow-up Plan FOLLOW UP WITH YOUR PRIMARY CARE PHYSICIAN IN 1-2 WEEKS EVELINE SIERRA Jul 09, 2018 15:07
--- NOTE | 2018-07-09 15:10 | DS ---
Date/Time of Note Date/Time of Note DATE: 07/09/18 TIME: 15:07 Discharge Summary Admission/Discharge Info Admit Date/Time Jul 07, 2018 at 19:14 Discharge Date/Time July 09, 2018 Discharge Diagnosis Abdominal pain secondary to cholelithiasis and possible choledocholithiasis - On US found to have gall stones and dilated CBD concerning for choledocholithiasis, however no stone is seen on ultrasound -MRCP shows cholelithiasis and mildly dilated common bile duct with no evidence of choledocholithiasis -Patient has had spontaneous resolution of her pain which suggest passing of stone, LFTs have trended down and patient is tolerating p.o. diet -GI consultation appreciated, no indication for ERCP at this time Intrauterine gestation -Follow-up with OB Patient Condition: Good Hospital Course Patient is a 27 yo female currently presents with abdominal pain, ultrasound showed gallstones and dilated CBD, MRCP showed cholelithiasis and mildly dilated CBD with no evidence of CBD stone. Patient did have elevation of LFTs which did trend down and patient did have resolution of pain which suggested possible passing of CBD stone. Patient was seen by GI and no intervention was recommended, patient was stable for DC was tolerating a p.o. diet. On day of discharge patient's vitals, labs and physical exam are stable. Home Meds Reported Medications Vit No.124/Iron/FA ( Vitamin Tablet) 1 Each Tablet, 1 EACH PO DAILY, TAB 07/07/18 Discontinued Reported Medications Vits W-Ca,Fe,Fa(<1MG) ( Vitamins) 1 Tab Tablet, 1 TAB PO 04/30/14 Discontinued Scripts Acetaminophen* (Tylenol*) 325 Mg Tablet, 1 TAB PO Q6 PRN for PAIN AND OR ELEVATED TEMP, #20 TAB Prov:DIRK BOLDEN MD 05/19/18 Ranitidine Hcl* (Zantac*) 150 Mg Tablet, 150 MG PO BID PRN for EPIGASTRIC PAIN, #60 TAB Prov:EZEKIEL TORRES MD 05/12/18 Cyclobenzaprine Hcl* (Cyclobenzaprine Hcl*) 10 Mg Tablet, 10 MG PO TID, #15 TAB Prov:AMIRA MACARIO MD 12/22/17 Acetaminophen* (Tylophen*) 500 Mg Capsule, 1 CAP PO Q6H PRN for PAIN AND OR ELEVATED TEMP, #20 CAP Prov:STEFANI VERA NP 09/05/17 Follow-up Plan FOLLOW UP WITH YOUR PRIMARY CARE PHYSICIAN IN 1-2 WEEKS Primary Care Provider Care Physician No Primary Time spent on discharge: > 30 minutes EVELINE SIERRA Jul 09, 2018 15:10
== END 2018-07-09 15:40 | disposition home or self-care (01) | DRG 833 ==
LOC: E/R 17:05 → MS1 19:14
PROVIDERS: ADMIT Internal Medicine; ATTEND Internal Medicine
DX: O99.611 Diseases of the digestive system complicating pregnancy, first trimester (principal); K80.20 Calculus of gallbladder without cholecystitis without obstruction; Z3A.12 12 weeks gestation of pregnancy
CPT/HCPCS: 36415; 74181; 76705; 80053; 81001; 81025; 83036; 83690; 85025; 86704; 86709; 86803; 87340; 96361; 96374; J2765; J7030

== ENCOUNTER 2018-10-23 18:57 | Inpatient (IN) | payer MEDICAID ==
[~2018-10-23] VITALS: Ht 152.4 cm; Wt 63.3 kg
[~2018-10-23 18:57] MED LIST changes: -ACET325T33 PO; -ACET500C5 PO; -CYCL10TA7 PO; -PREN-39 PO; +PREN-93 PO; -RANI150T35 PO
[2018-10-23 19:15] VITALS: Ht 152.4 cm; Wt 63.3 kg
[2018-10-23 19:16] VITALS: BP 104/64; PULSE 96; RESP 18
--- NOTE | 2018-10-23 22:05 | TRIAGE ---
OB Triage Datetime Report Generated by CPN: 10/23/2018 22:04 Datetime: 10/23/2018 21:25 Contraction Comments: CERVIX APPEARED SHORT ON U/S, EFM REAPPLIED BUT ONLY TOCO PLACED TO SEE IF UC S NOTED WHEN MOVING TOCO TO A LOWER POSITION AND PLACED TIGHTER Datetime: 10/23/2018 20:43 Labor Evaluation Frequency: 0 Monitor Mode: External Resting Tone [place]: Relaxed Heart Rate FHR Baseline Rate: 140 Monitor Mode: External US Variability: Moderate 6-25 bpm Accelerations: 15X15 Decelerations: None Category: Category I Datetime: 10/23/2018 20:12 Comments: REAPPLIED AFTER U/S Datetime: 10/23/2018 19:36 Labor Evaluation Frequency: 0 Monitor Mode: External Resting Tone [place]: Relaxed Heart Rate FHR Baseline Rate: 135 Monitor Mode: External US Variability: Moderate 6-25 bpm Accelerations: 15X15 Decelerations: None Category: Category I Datetime: 10/23/2018 19:09 Headache: Denies Blurred Vision: No Nausea/Vomiting: Denies RUQ Epigastric Pain: Denies Facial Edema: None Pain Assessment Pain Scale: 6 Pain Presence: Intermittent Pain Type: Stabbing Pain Location: Perineum Pain Goal: 6 Pain Relief Measures: Comfort Measures Pain Assessment Comments: STATES PAIN IN VAGINA COMES AND GOES EVERY 10-15 MIN BUT IS TOLERABLE Datetime: 10/23/2018 19:01 Assessment Type: Triage Maternal Assessment Level of Consciousness: Keenly Alert, Responsive DTR's/Clonus: DTRs 2+; No Clonus Headache: Denies Blurred Vision: No Respiratory Effort: Unlabored; Regular Rhythm; Equal Expansion Breath Sounds, Left: Clear and Equal Breath Sounds, Right: Clear and Equal Nausea/Vomiting: Denies RUQ Epigastric Pain: Denies Lower Extremities Edema: None Degree: None Upper Extremities Edema: None Degree: None Facial Edema: None Fall Risk Assessment History of Falling: (0) No Secondary Diagnosis: (0) No Ambulatory Aid: (0) Bedrest/Nurse Assist IV Therapy: (0) No Gait: (0) Normal/Bedrest/Immobile Mental Status: (0) Oriented to Own Ability Fall Score: 0 Fall Risk Score Definition: No Risk: No action required Datetime: 10/23/2018 18:59 Time of Arrival: 10/23/2018 18:41 EGA: 28.2 Arrived By: Ambulatory Arrived From: Dr. Hutchins Chief Complaint: SENT FROM [facility] AFTER PT C/O PULSATING SENSATION IN VAGINA. Movement: Present Contractions: Denies/Absent Rupture of Membranes: Denies Vaginal Bleeding: None Vaginal Discharge: Denies Recent Sexual Intercouse: Denies Abdominal Trauma: Not Applicable Patient Complaints: Other Additional Patient Complaints: VAGINAL PAIN DURING PULSATING SENSATION Q 10-15 MIN Time Provider Notified: 10/23/2018 19:33 Provider Notified: JEMMA Initial Plan: BPP/NST ORDERED, CALL MD FOR FURTHER ORDERS Datetime: 10/23/2018 18:57 Monitor Mode: External Monitor Mode: External US
[2018-10-23] MEDS: LACTATED RINGER'S 1,000 ML IV SCH (22:29)
[2018-10-23] MEDS ORDERED: AMPICILLIN 2 GM/NS (PMX) 100 ML IV ONE (22:30)
[2018-10-23] MEDS ORDERED: MAGNESIUM SULFATE 4 GM/100 ML 100 ML IV ONE (22:30)
[2018-10-23] MEDS ORDERED: ACETAMINOPHEN 325 MG TAB PO PRN (22:30)
--- NOTE | 2018-10-23 22:37 | TRIAGE ---
OB Triage Datetime Report Generated by CPN: 10/23/2018 22:37 Datetime: 10/23/2018 22:21 Comments: REAPPLIED Datetime: 10/23/2018 19:01 Fall Score: 0 Fall Risk Score Definition: No Risk: No action required Datetime: 10/23/2018 18:59 EGA: 28.2
[2018-10-23] MEDS: MAGNESIUM SULFATE 20 GM/500 ML 500 ML IV SCH (23:17)
[2018-10-24] MEDS: BETAMET NA PHOS/AC(6 MG/ML) 2 ML INJ SYG IM SCH (01:22)
[2018-10-24] MEDS: AMPICILLIN 1 GM/NS (PMX) 50 ML IV SCH ×6 (02:30→21:14)
[2018-10-24] MEDS: MAGNESIUM SULFATE 20 GM/500 ML 500 ML IV SCH ×2 (07:45→19:52)
[2018-10-24] MEDS: PRENATAL VITAMIN PO SCH (12:32)
[2018-10-24] MEDS: FERROUS SULFATE (EC) 325 MG TAB PO SCH (12:32)
--- NOTE | 2018-10-24 15:12 | CONS ---
Consultation Date/Type/Reason Admit Date/Time Oct 23, 2018 at 22:04 Date of Consultation: Oct 24, 2018 Type of Consult Neonatology Reason for Consultation contractions Date/Time of Note DATE: 10/24/18 TIME: 15:07 Hx of Present Illness Ms Aguiar is presenting today with premature contractions at 28.2 wk gestation. She is expecting a boy. She reports that her contractions have since admission gotten much less frequent and are nearly gone. She has received betamethasone, Magnesium, and antibiotics since 10/23. Her EDC is 01/13/19. I discussed the need to deliver in a hospital that has a NICU such as [facility] so that the risks of complications of prematurity, mainly and IVH are decreased. She not only was counseled on the possibility of IVH, , sepsis, NEC, intubation and mechanical ventilation need for her baby, but also that the baby will likely need iv's and central lines or hardware to sustain life. The baby is expected to stay in the NICU for a few months roughly the amount of time it would take to reach corrected full term age. Ms Aguiar expressed understanding and had no further questions. Past Medical History Home Meds Reported Medications Vit No.124/Iron/FA ( Vitamin Tablet) 1 Each Tablet, 1 EACH PO DAILY, TAB 07/07/18 Medications Current Medications Lactated Ringer's 1,000 ml @ 75 mls/hr [id number] IV Last administered on 10/23/18at 22:29; Admin Dose 75 MLS/HR; Start 10/23/18 at 22:04 Magnesium Sulfate 500 ml @ 50 mls/hr Q10H IV Last administered on 10/24/18at 07:45; Admin Dose 50 MLS/HR; Start 10/23/18 at 22:04 Betamethasone Acet/Betameth SodPhos (Celestone Soluspan) 12 mg Q24H IM Last administered on 10/24/18at 01:22; Admin Dose 12 MG; Start 10/23/18 at 22:30; Stop 10/24/18 at 22:31 Ampicillin 50 ml @ 100 mls/hr Q4H IV Last administered on 10/24/18at 12:32; Admin Dose 100 MLS/HR; Start 10/24/18 at 02:30 Prenat Multivit/ [place]/Iron/Folic Ac () 1 tab DAILY PO Last administered on 10/24/18at 12:32; Admin Dose 1 TAB; Start 10/24/18 at 09:00 Ferrous Sulfate (Ferrous Sulfate (Ec)) 325 mg DAILY PO Last administered on 10/24/18at 12:32; Admin Dose 325 MG; Start 10/24/18 at 09:00 Acetaminophen (Tylenol Tab) 650 mg Q4H PRN PO .PAIN OR TEMP; Start 10/23/18 at 22:30 Allergies: Coded Allergies: No Known Allergy (Unverified , 10/23/18) Past Surgical History Past Surgical Hx: no surgical history Social History Smoking Status: Never smoker Exam/Review of Systems Exam Vitals Vital Signs Date Temp Pulse Resp B/P (MAP) Pulse Ox O2 O2 Flow FiO2 Time Delivery Rate 10/23/18 99.1 96 18 104/64 Room Air 19:16 (77) Intake and Output 10/23/18 10/23/18 10/24/18 1515:00 23:00 07:00 IntakeIntake Total 950 ml OutputOutput Total 2700 ml BalanceBalance -1750 ml Results Result Diagram: 10/23/185 10/23/18 2225 Results 24hrs Laboratory Tests Test 10/23/18 18:55 10/23/18 22:25 10/24/18 05:36 10/24/18 06:39 Urine Color STRAW Urine Clarity CLEAR Urine pH 7.0 Urine Specific 1.008 [place] Urine Ketones NEGATIVE Urine Nitrite NEGATIVE Urine Bilirubin NEGATIVE Urine Urobilinogen NEGATIVE Urine Leukocyte NEGATIVE Esterase Urine Hemoglobin NEGATIVE Urine Glucose NEGATIVE Urine Total NEGATIVE Protein White Blood Count 12.7 #H Red Blood Count 3.70 L Hemoglobin 11.5 L Hematocrit 35.5 L Mean Corpuscular 95.9 Volume Mean Corpuscular 31.1 Hemoglobin Mean Corpuscular 32.4 Hemoglobin Concent Red Cell 13.4 Distribution Width Platelet Count 170 Mean Platelet 10.8 H Volume Immature 1.400 H Granulocytes % Neutrophils % 61.3 Lymphocytes % 27.0 Monocytes % 8.7 Eosinophils % 1.2 Basophils % 0.4 Nucleated Red 0.0 Blood Cells % Immature 0.180 H Granulocytes # Neutrophils # 7.8 H Lymphocytes # 3.4 H Monocytes # 1.1 H Eosinophils # 0.2 Basophils # 0.1 Nucleated Red 0.0 Blood Cells # Sodium Level 140 Potassium Level 3.4 L Chloride Level 108 Carbon Dioxide 23 Level Anion Gap 9 Blood Urea 10 Nitrogen Creatinine 0.61 Est Glomerular > 60 Filtrat Rate mL/min Glucose Level 83 Calcium Level 8.9 Total Bilirubin 0.3 Direct Bilirubin 0.00 Indirect Bilirubin 0.3 Aspartate Amino 23 Transf (AST/SGOT) Alanine 18 Aminotransferase ( ALT/SGPT) Alkaline 97 Phosphatase Total Protein 7.0 Albumin 3.5 Globulin 3.50 H Albumin/Globulin 1.00 Ratio Magnesium Level 6.0 *H Lab Scanned Report REFERENCE LAB Test 10/24/18 11:39 Magnesium Level 5.7 *H Medications Medication Current Medications Lactated Ringer's 1,000 ml @ 75 mls/hr [id number] IV Last administered on 10/23/18 22:29; Admin Dose 75 MLS/HR; Start 10/23/18 at 22:04 Magnesium Sulfate 500 ml @ 50 mls/hr Q10H IV Last administered on 10/24/18 07:45; Admin Dose 50 MLS/HR; Start 10/23/18 at 22:04 Betamethasone Acet/Betameth SodPhos (Celestone Soluspan) 12 mg Q24H IM Last administered on 10/24/18 01:22; Admin Dose 12 MG; Start 10/23/18 at 22:30; Stop 10/24/18 at 22:31 Ampicillin 50 ml @ 100 mls/hr Q4H IV Last administered on 10/24/18 12:32; Admin Dose 100 MLS/HR; Start 10/24/18 at 02:30 Prenat Multivit/ Senior Risk Manager/Iron/Folic Ac () 1 tab DAILY PO Last administered on 10/24/18at 12:32; Admin Dose 1 TAB; Start 10/24/18 at 09:00 Ferrous Sulfate (Ferrous Sulfate (Ec)) 325 mg DAILY PO Last administered on 10/24/18 12:32; Admin Dose 325 MG; Start 10/24/18 at 09:00 Acetaminophen (Tylenol Tab) 650 mg Q4H PRN PO .PAIN OR TEMP; Start 10/23/18 at 22:30 PRISCILA PARSONS MD Oct 24, 2018 15:12
--- NOTE | 2018-10-24 18:06 | QN ---
Documentation Comment Denies any vaginal bleeding, leaking of fluid decreased movement or uterine contractions. Comfortable. Physical examination: General appears alert and oriented x4 does not appear to be in any acute distress Abdomen: Soft, gravid, fundal height consider gestational age NST: Appropriate for gestational age UA: Negative Assessment IUP at 28 weeks and 4 days Short cervix, cervical length 1.3 cm Status post first dose of betamethasone, on magnesium, no evidence of mag toxicity Currently asymptomatic perinatology/ neonatology consultation tomorrow On ampicillin due to labor and contractions Continue management with above plan YESENIA STILES MD Oct 24, 2018 18:06
--- NOTE | 2018-10-24 18:07 | HP ---
Date/Time of Note Date/Time of Note DATE: 10/24/18 TIME: 18:06 OB - History Hx of Present Free Text/Dictation Late entry note for exam done on October 23, 2018 October 23, 2018 Estimated Due Date: Jan 13, 2019 : 2 Para: 1 Other Concerns: 28-year-old G2, P1 with IUP at 28 weeks and 4 days and care with Dr. Gonzalez, presented with complaint of feeling some pulsation in the vaginal area. Noted to have short cervix, 1.3 cm Patient denies any vaginal bleeding or decreased movement. No complication during her course. Had a history of x1. Complaint of some vaginal irritation. Denies any dysuria Past medical history significant for history of gallstone and gastritis Past Family/Social History * Past Medical, Surgical, Family and Obstetric Histories reviewed from chart. Blood Type: O+ Rubella: immune RPR/VDRL: Negative GBS Status: Unknown HBsAG: Negative OB Admission Exam Vital Signs Vital Signs Vital Signs Date Temp Pulse Resp B/P (MAP) Pulse Ox O2 O2 Flow FiO2 Time Delivery Rate 10/23/18 99.1 96 18 104/64 Room Air 19:16 (77) Physical Exam HEENT: WNL Lungs: Clear Abdomen: WNL Cervical Dilatation: None Heart Rate: 130's Accelerations: Accelerations Present Decelerations: No Decelerations Varibility: Moderate Contractions on Admission: >10 Minutes Apart Intensity: Mild Last 72 hourBlood Glucose PROCEDURE: Obstetrical ultrasound, limited. CLINICAL INDICATION: labor. TECHNIQUE: Multiple sonographic images of the pelvis were obtained using tra nsabdominal technique. Images were obtained with vergara scale and color Doppler. Transvaginal evaluation of the cervix was also performed. The images were reviewed on a PACS workstation. COMPARISON: No prior studies are available for comparison. FINDINGS: There is a single living intrauterine gestation with the fetus in a vertex presentation. heart tones of 143 beats per minute are identified. The placenta is posterior in location, grade 1. The cervix is shortened measuring 1.3 cm with heterogeneous blood clot within the cervical canal. IMPRESSION: Single live intrauterine gestation. Shortened cervix measuring 1.3 cm with heterogeneous blood clot within the cervical canal. Last 72 hours Lab Results CBC & BMP 10/23/18 22:25 Liver Function Test 10/23/18 22:25 Alanine Aminotransferase (ALT/SGPT) 18 Albumin 3.5 Alkaline Phosphatase 97 Aspartate Amino Transf (AST/SGOT) 23 Direct Bilirubin 0.00 Total Protein 7.0 Magnesium Level Test 10/24/18 05:36 10/24/18 11:39 Magnesium Level 6.0 *H 5.7 *H OB Assessment/Plan Other Assessment: IUP at 28 weeks and 4 days contractions and short cervix consistent with labor Will be admitted for tocolysis and steroid No evidence of UTI Vaginal irritation, wet mount ordering UA Negative Perinatology /neonatology consultation Start ampicillin due to labor Presentation vertex YESENIA STILES MD Oct 24, 2018 18:07
[2018-10-25] MEDS: AMPICILLIN 1 GM/NS (PMX) 50 ML IV SCH ×6 (00:56→22:17)
[2018-10-25] MEDS: BETAMET NA PHOS/AC(6 MG/ML) 2 ML INJ SYG IM SCH (01:51)
[2018-10-25] MEDS: LACTATED RINGER'S 1,000 ML IV SCH ×3 (04:30→21:40)
[2018-10-25] MEDS: MAGNESIUM SULFATE 20 GM/500 ML 500 ML IV SCH ×2 (04:48→16:14)
[2018-10-25] MEDS: PRENATAL VITAMIN PO SCH (08:55)
[2018-10-25] MEDS: FERROUS SULFATE (EC) 325 MG TAB PO SCH (08:56)
--- NOTE | 2018-10-25 20:43 | QN ---
Documentation Comment 28y.o A0 admitted on 10/23/18 with short cervix 1.3 BPP 8/8 ROBERT 14.7 EFW 1182gm A IUP 28w5d short cervix P transfer to 3 W in am after Mg and Ab discontinue in am SRAVAN HUNT MD Oct 25, 2018 20:43
[2018-10-26] MEDS: AMPICILLIN 1 GM/NS (PMX) 50 ML IV SCH (03:15)
[2018-10-26] MEDS: MAGNESIUM SULFATE 20 GM/500 ML 500 ML IV SCH (03:17)
[2018-10-26] MEDS: LACTATED RINGER'S 1,000 ML IV SCH ×2 (08:58→18:24)
[2018-10-26] MEDS: FERROUS SULFATE (EC) 325 MG TAB PO SCH (08:59)
[2018-10-26] MEDS: PRENATAL VITAMIN PO SCH (08:59)
--- NOTE | 2018-10-26 09:25 | QN ---
Documentation Comment 28-year-old 2 para 1 at 28 weeks and 6 days of gestation admitted for short cervix and labor Cervical length 1.3 cm The EFW = 1182 g, 31.8%ile. BPP 11/07 ROBERT = 14.7 cm. Patient reports positive movement, denies uterine contractions, denies vaginal bleeding or leaking fluid Vital signs stable VS - Last 72 Hours, by Label Date Temp Pulse Resp B/P (MAP) Pulse Ox O2 O2 Flow FiO2 Time Delivery Rate 10/23/18 99.1 96 18 104/64 Room Air 19:16 (77) Hematology - 72 Hrs Test 10/23/18 22:25 Hematocrit 35.5 % (37.0-47.0) L Hemoglobin 11.5 g/dl (12.0-16.0) L Mean Corpuscular Hemoglobin 31.1 pg (29.0-33.0) Mean Corpuscular Hemoglobin Concent 32.4 g/dl (32.0-37.0) Mean Corpuscular Volume 95.9 fl (82.0-101.0) Mean Platelet Volume 10.8 fl (7.4-10.4) H Platelet Count 170 10^3/UL (140-415) Red Blood Count 3.70 10^6/ul (4.20-5.40) L Red Cell Distribution Width 13.4 % (11.5-14.5) White Blood Count 12.7 10^3/ul (4.8-10.8) #H Chemistry Test 10/23/18 22:25 10/24/18 05:36 10/24/18 11:39 10/24/18 18:07 Sodium Level 140 mmol/L (135-144 ) Potassium 3.4 Level mmol/L (3.5-5.1 ) L Chloride Level 108 mmol/L (97-110) Carbon Dioxide 23 Level mmol/L (21-31) Anion Gap 9 (5-13) Blood Urea 10 mg/dl (7-20) Nitrogen Creatinine 0.61 mg/dl (0.44-1.0 0) Est Glomerular > 60 Filtrat mL/min (>60) Rate mL/min Glucose Level 83 mg/dl (70-220) Calcium Level 8.9 mg/dl (8.4-10.2 ) Total 0.3 Bilirubin mg/dl (0.2-1.3) Direct 0.00 Bilirubin mg/dl (0.00-0.2 0) Indirect 0.3 Bilirubin mg/dl (0-1.1) Aspartate Amino 23 IU/L (15-46) Transf (AST/SGO T) Alanine 18 IU/L (13-69) Aminotransferas e (ALT/SGPT) Alkaline 97 Phosphatase IU/L (42-121) Total Protein 7.0 g/dl (6.1-8.1) Albumin 3.5 g/dl (3.3-4.9) Globulin 3.50 g/dl (1.3-3.2) H Albumin/Globuli 1.00 n Ratio Magnesium 6.0 5.7 5.5 Level mg/dl (1.7-2.5 mg/dl (1.7-2.5 mg/dl (1.7-2.5 ) *H ) *H ) *H Test 10/25/18 00:17 10/25/18 06:08 10/25/18 11:42 10/25/18 19:45 Magnesium 5.5 5.4 4.8 5.3 Level mg/dl (1.7-2.5) mg/dl (1.7-2.5 mg/dl (1.7-2.5 mg/dl (1.7-2.5 *H ) *H ) H ) *H Test 10/26/18 00:13 10/26/18 05:35 Magnesium 6.0 4.9 Level mg/dl (1.7-2.5) mg/dl (1.7-2.5 *H ) H PROCEDURE: Obstetrical ultrasound, limited. CLINICAL INDICATION: labor. TECHNIQUE: Multiple sonographic images of the pelvis were obtained using transabdominal technique. Images were obtained with vergara scale and color Doppler. Transvaginal evaluation of the cervix was also performed. The images were reviewed on a PACS workstation. COMPARISON: No prior studies are available for comparison. FINDINGS: There is a single living intrauterine gestation with the fetus in a vertex presentation. heart tones of 143 beats per minute are identified. The placenta is posterior in location, grade 1. The cervix is shortened measuring 1.3 cm with heterogeneous blood clot within the cervical canal. IMPRESSION: Single live intrauterine gestation. Shortened cervix measuring 1.3 cm with heterogeneous blood clot within the cervical canal. .Zeb Wasserman MD, Date Time Electronically viewed and signed by .Zeb Wasserman MD, on 10/23/2018 21:53 .T/ CC: YESENIA STILES MD [id number] Assessment and plan; Status post steroids for lung maturity Status post magnesium sulfate for neuro protection Status post antibiotics Perinatology consultation pending Will transfer to antepartum unit FREDERIC BECKETT MD Oct 26, 2018 09:25
--- NOTE | 2018-10-26 11:29 | CONS ---
DATE OF ADMISSION: 10/23/2018 DATE OF CONSULTATION: 10/25/2018 HISTORY OF PRESENT ILLNESS: The patient is a G2, P1 at 28 weeks and 4 days, presented with l abor. Cervical length slightly above a cm, on magnesium sulfate, status post 2 doses of betamethason e. Her previous was full term, no complications. PHYSICAL EXAMINATION: VITAL SIGNS: Stable. Physical examination deferred. heart tones reassuring. Contractions very infrequently. IMPRESSION: Intrauterine at 28 and 4 with labor, short cervix, status post betamet hasone on magnesium and antibiotics. RECOMMENDATIONS: Discontinue magnesium sulfate 24 hours after second dose of betamethasone. At that time discontinue antibiotics as well. I do recommend in-house management until about 32 weeks given the patient's home situation and a 4-year-old son, as well as the short cervix. For further questio ns, please contact me. Dictated By: SULEMA CHOU/DEMAR Conf#: [id number] DID#: [id number]
[2018-10-26] MEDS: CLINDAMYCIN 2% 40 GM VAG CR VAG SCH (21:00)
[2018-10-26] MEDS ORDERED: metroNIDAZOLE 0.75% 70 GM VAG GEL VAG SCH (21:00)
[2018-10-27] MEDS: LACTATED RINGER'S 1,000 ML IV SCH ×3 (07:07→20:33)
[2018-10-27] MEDS: PRENATAL VITAMIN PO SCH (09:51)
[2018-10-27] MEDS: FERROUS SULFATE (EC) 325 MG TAB PO SCH (09:51)
--- NOTE | 2018-10-27 15:06 | QN ---
Documentation Comment 28+wks GA with short cervix and PTL NST reassuring for GA [place] No CTXs Pelvic Deferred --->Close Observation --->Close Monitoring -->Management as per Perinatologist KINJAL OLIVO M.D. Oct 27, 2018 15:06
[2018-10-27] MEDS: CLINDAMYCIN 2% 40 GM VAG CR VAG SCH (21:00)
[2018-10-28] MEDS: FERROUS SULFATE (EC) 325 MG TAB PO SCH (09:13)
[2018-10-28] MEDS: PRENATAL VITAMIN PO SCH (09:13)
[2018-10-28] MEDS: metroNIDAZOLE 500 MG TAB PO SCH ×2 (09:13→20:49)
--- NOTE | 2018-10-28 14:56 | PN ---
Date/Time of Note Date/Time of Note DATE: 10/28/18 TIME: 14:55 OB Subjective Subjective Subjective Patient notes that mitral valve prolapse was found during and she has no history of mitral valve prolapse. She denies any leakage of fluid or vaginal bleeding. She notes vaginal pressure. 104/64 hr 77 abd gravid nttp ext nttp sve fingertip/75%/floating medium/posterior us 10/23/18 CL 1.3 cm Assessment/Plan: 1. short cervix-s/p ancs/magnesium sulfate/mfm/neonatology consults. expectant management. may consider vaginal progesterone although not sure if cl was < 20 mm <.= 24 wga. will try to obtain records. 2. MVP-s/p cardiology consult previously. expectant management. no increased mortality risk in , slight increase risk in morbidity. 2-5% risk of maternal cardiac event during . 3. h/o cs-for repeat unless otherewise indicated 4. bv-continue flagyl x 7 days MILESTONE,MAREK VICKERS Oct 28, 2018 14:56
[2018-10-29] MEDS: PRENATAL VITAMIN PO SCH (08:12)
[2018-10-29] MEDS: DOCUSATE SODIUM 100 MG CAP PO PRN (08:12)
[2018-10-29] MEDS: metroNIDAZOLE 500 MG TAB PO SCH ×2 (08:12→21:10)
[2018-10-29] MEDS: FERROUS SULFATE (EC) 325 MG TAB PO SCH (08:12)
--- NOTE | 2018-10-29 19:07 | PN ---
Date/Time of Note Date/Time of Note DATE: 10/29/18 TIME: 19:07 OB Subjective Subjective Subjective Date of admission 10/24/2018 Patient seen and examined. She states good movement. She denies nausea, vomiting, shortness of breath, chest pain, abdominal pain, 1 she is actually evaluating some mild chills headache, visual changes, vaginal bleeding or LOF. OB Objective Objective Objective General: Patient appears well, alert and oriented, NAD, appropriate mood and affect ABD: gravid, soft, non-tender. Back: No CVA tenderness (B/L) LE: Mild edema. No clubbing, cyanosis, edema, thigh or calf tenderness bilaterally FHT: 130 bpm to 1, moderate variability with acceleration, no deceleration- category I Contractions: None OB Assessment/Plan Other plan: 28 Year-old G 2 para 1-0-0-1 with SIUP at 29 weeks and 1 day with short cervix - FHR: Reassuring. No sign of metabolic acidosis- Category I - Contractions: None. - Weekly weight - Cont vitamin and ferrous sulfate - S/p steroid and magnesium sulfate - In-house observation until 32 weeks - Perinatology and neonatology consult appreciated 2. BV: Clue cells seen on smear. On metronidazole 500 mg twice daily for total 7 days CLARE EASTON Oct 29, 2018 19:07
[2018-10-30] MEDS: FERROUS SULFATE (EC) 325 MG TAB PO SCH (08:31)
[2018-10-30] MEDS: metroNIDAZOLE 500 MG TAB PO SCH ×2 (08:31→21:55)
[2018-10-30] MEDS: DOCUSATE SODIUM 100 MG CAP PO PRN (08:31)
[2018-10-30] MEDS: PRENATAL VITAMIN PO SCH (08:31)
--- NOTE | 2018-10-30 12:57 | PN ---
Date/Time of Note Date/Time of Note DATE: 10/30/18 TIME: 12:55 OB Subjective Subjective Subjective Date of admission 10/24/2018 Patient seen and examined. She states good movement. She denies nausea, vomiting, shortness of breath, chest pain, abdominal pain, headache, visual changes, vaginal bleeding or LOF. OB Objective Objective Objective General: Patient appears well, alert and oriented, NAD, appropriate mood and affect ABD: gravid, soft, non-tender. Back: No CVA tenderness (B/L) LE: Mild edema. No clubbing, cyanosis, edema, thigh or calf tenderness bilaterally FHT: 135 bpm, moderate variability with acceleration, no deceleration-category I Contractions: None OB Assessment/Plan Other plan: 28 Year-old G 2 para 1-0-0-1 with SIUP at 29 weeks and 1 day with short cervix (1.3 cm) - FHR: Reassuring. No sign of metabolic acidosis- Category I - Contractions: None - Weekly weight - Cont vitamin and ferrous sulfate - S/p steroid and magnesium sulfate - Perinatology and neonatology consult appreciated - In-house observation until 32 weeks - Tdap vaccine today 2. BV: Clue cells seen on smear. On metronidazole 500 mg twice daily for 7 days CLARE EASTON Oct 30, 2018 12:57
[2018-10-30] MEDS ORDERED: DIPHTH/TET/ACEL PERTUSS (ADULT) 0.5 ML VIAL IM* ONE (13:30)
[2018-10-30] MEDS ORDERED: DIPHENHYDRAMINE 25 MG CAP PO SCH (21:00)
--- NOTE | 2018-10-31 08:10 | PN ---
Date/Time of Note Date/Time of Note DATE: 10/31/18 TIME: 08:03 OB Subjective Subjective Subjective Patient without complaints. Desires to be discharged as she has a child at home. vs 100/74 hr 90 abd gravid nttp ext nttp sve fingertip/75%/floating medium/posterior us 10/23/18 CL 1.3 cm Assessment/Plan: 1. w/ short cervix at 29 3/7 wga-s/p ancs/magnesium sulfate/mfm/neonatology consults. expectant management. may consider vaginal progesterone although not sure if cl was < 20 mm <.= 24 wga. will try to obtain records. Discharge pending perinatology. 2. MVP-s/p cardiology consult previously. expectant management. no increased mortality risk in , slight increase risk in morbidity. 2-5% risk of maternal cardiac event during . 3. h/o cs-for repeat unless otherewise indicated 4. bv-continue flagyl x 7 days MAREK LEAVITT MD Oct 31, 2018 08:10
[2018-10-31] MEDS: PRENATAL VITAMIN PO SCH (08:58)
[2018-10-31] MEDS: FERROUS SULFATE (EC) 325 MG TAB PO SCH (08:58)
[2018-10-31] MEDS: DOCUSATE SODIUM 100 MG CAP PO PRN (08:58)
[2018-10-31] MEDS: metroNIDAZOLE 500 MG TAB PO SCH ×2 (08:58→21:13)
[2018-10-31] MEDS ORDERED: DIPHENHYDRAMINE 25 MG CAP PO PRN (15:30)
[2018-11-01] MEDS: metroNIDAZOLE 500 MG TAB PO SCH ×2 (09:11→21:26)
[2018-11-01] MEDS: FERROUS SULFATE (EC) 325 MG TAB PO SCH (09:11)
[2018-11-01] MEDS: PRENATAL VITAMIN PO SCH (09:11)
[2018-11-02] MEDS: PRENATAL VITAMIN PO SCH (09:21)
[2018-11-02] MEDS: FERROUS SULFATE (EC) 325 MG TAB PO SCH (09:21)
[2018-11-02] MEDS: metroNIDAZOLE 500 MG TAB PO SCH ×2 (09:21→21:09)
--- NOTE | 2018-11-02 19:18 | QN ---
Documentation Comment 28 Year-old G 2 para 1-0-0-1 with SIUP at 29 weeks and 4 day with short cervix (1.3 cm) - FHR: Category I - Contractions: None - Weekly weight - Cont vitamin and ferrous sulfate - S/p steroid and magnesium sulfate - Perinatology and neonatology consult appreciated - In-house observation until 32 weeks - Tdap vaccine given on 10/30/2018 2. History of previous delivery 3. Mitral valve prolapse: She is currently doing well and has no symptom CLARE EASTON Nov 02, 2018 19:18
--- NOTE | 2018-11-02 23:29 | QN ---
Documentation Comment late entry for service rendered on 11/01/1805/21/2014 S no c/o uterine contraction s O U/S CVL 1.1cm with funneling on 10/31/18 IEFM uterine contactions 4/hr clue cells + on flagyl A IUP 29w4d short cervix P continue current management SRAVAN HUNT MD Nov 02, 2018 23:29
[2018-11-03] MEDS: PRENATAL VITAMIN PO SCH (08:37)
[2018-11-03] MEDS: FERROUS SULFATE (EC) 325 MG TAB PO SCH (08:37)
[2018-11-03] MEDS: metroNIDAZOLE 500 MG TAB PO SCH ×2 (08:37→22:04)
--- NOTE | 2018-11-03 13:25 | QN ---
Documentation Comment 28 Year-old G 2 para 1 with IUP at 29 weeks and 5 day with short cervix (1.3 cm) estimated date of delivery January 13, 2019 - FHR: Category I - Contractions: None - Weekly weight - Cont vitamin and ferrous sulfate - S/p steroids and magnesium sulfate - Perinatology and neonatology consult appreciated - In-house observation until 32 weeks - Tdap vaccine was given on 10/30/2018 2. History of previous delivery full-term 3. Mitral valve prolapse: She is currently doing well and has no symptom FREDERIC BECKETT MD Nov 03, 2018 13:25
[2018-11-04] MEDS: PRENATAL VITAMIN PO SCH (08:41)
[2018-11-04] MEDS: metroNIDAZOLE 500 MG TAB PO SCH ×2 (08:41→20:51)
[2018-11-04] MEDS: FERROUS SULFATE (EC) 325 MG TAB PO SCH (08:41)
--- NOTE | 2018-11-04 16:25 | PN ---
Date/Time of Note Date/Time of Note DATE: 11/04/18 TIME: 16:24 OB Subjective Subjective Subjective Subjective Patient without complaints. Denies lof or vb. abd gravid nttp ext nttp sve fingertip/75%/floating medium/posterior us 10/31/18 CL 1.1 cm Assessment/Plan: 1. w/ short cervix at 30 wga-s/p ancs/magnesium sulfate/mfm/neonatology consults. expectant management until 32 wga per mfm. may consider vaginal progesterone although not sure if cl was < 20 mm <.= 24 wga. will try to obtain records. 2. MVP-s/p cardiology consult previously. expectant management. no increased mortality riskin , slight increase risk in morbidity. 2-5% risk of maternal cardiac event during . 3. h/o cs-for repeat unless otherewise indicated 4. bv-continue flagyl x 7 days MAREK LEAVITT MD Nov 04, 2018 16:25
[2018-11-05] MEDS: metroNIDAZOLE 500 MG TAB PO SCH (08:53)
[2018-11-05] MEDS: FERROUS SULFATE (EC) 325 MG TAB PO SCH (08:53)
[2018-11-05] MEDS: PRENATAL VITAMIN PO SCH (08:53)
--- NOTE | 2018-11-05 14:36 | PN ---
Date/Time of Note Date/Time of Note DATE: 11/05/18 TIME: 14:36 OB Subjective Subjective Subjective Date of admission 10/24/2018 Patient seen and examined. She states good movement. She denies nausea, vomiting, shortness of breath, chest pain, abdominal pain, headache, visual changes, vaginal bleeding or LOF. OB Objective Objective Objective General: Patient appears well, alert and oriented, NAD, appropriate mood and affect ABD: gravid, soft, non-tender. Back: No CVA tenderness (B/L) LE: Mild edema. No clubbing, cyanosis, edema, thigh or calf tenderness bilaterally FHT: 130 bpm, moderate variability with acceleration, no deceleration-category I Contractions: None OB Assessment/Plan Other plan: 28 Year-old G 2 para 1-0-0-1 with SIUP at 30 weeks and 1 day with short cervix (1.3 cm, repeat ultrasound 1.1 cm) - FHR: Category I - Contractions: None - Weekly weight - Cont vitamin and ferrous sulfate - S/p steroid and magnesium sulfate - Perinatology and neonatology consult appreciated - In-house observation until 31 weeks, she has 4 years old son at home. Reevaluate at 31 weeks if she is stable may discharge home - She received Tdap vaccine 2. BV: She was treated during current admission 3. Previous delivery 4. History of mitral valve prolapse. Previously was seen by heater room helper. She is currently doing well and has no symptoms CLARE EASTON Nov 05, 2018 14:36
[2018-11-06] MEDS: PRENATAL VITAMIN PO SCH (09:05)
[2018-11-06] MEDS: FERROUS SULFATE (EC) 325 MG TAB PO SCH (09:05)
--- NOTE | 2018-11-07 00:10 | PN ---
Date/Time of Note Date/Time of Note DATE: 11/07/18 TIME: 00:08 OB Subjective Subjective Subjective Late entry note. Patient seen at 830 on 11/06/2018 Date of admission 10/24/2018 Patient seen and examined. She states good movement. She denies nausea, vomiting, shortness of breath, chest pain, abdominal pain, headache, visual changes, vaginal bleeding or LOF. OB Objective Objective Objective General: Patient appears well, alert and oriented, NAD, appropriate mood and affect ABD: gravid, soft, non-tender. Back: No CVA tenderness (B/L) LE: Mild edema. No clubbing, cyanosis, edema, thigh or calf tenderness bilaterally FHT: 135 bpm, moderate variability with acceleration, no deceleration-category I Contractions: None OB Assessment/Plan Other plan: 28 Year-old G 2 para 1-0-0-1 with SIUP at 30 weeks and 2 day with short cervix (1.3 cm, repeat ultrasound 1.1 cm) - FHR: Category I - Contractions: None - Weekly weight - Cont vitamin and ferrous sulfate - S/p steroid and magnesium sulfate - Perinatology and neonatology consult appreciated - In-house observation until 31 weeks, she has 4 years old son at home. Reevaluate at 31 weeks if she is stable may discharge home - She received Tdap vaccine 2. BV: She was treated during current admission 3. Previous delivery 4. History of mitral valve prolapse. Previously was seen by angle shear set up operator. She is currently doing well and has no symptoms CLARE EASTON Nov 07, 2018 00:10
--- NOTE | 2018-11-07 08:04 | PN ---
Date/Time of Note Date/Time of Note DATE: 11/07/18 TIME: 08:03 OB Subjective Subjective Subjective Subjective Patient without complaints. Denies lof or vb. vs 98/54 abd gravid nttp ext nttp sve fingertip/75%/floating medium/posterior us 10/31/18 CL 1.1 cm efm 135/mod ilene/no decels/+accels toco none Assessment/Plan: 1. w/ short cervix at 30.3 wga-s/p ancs/magnesium sulfate/mfm/neonatology consults. expectant management until 31 with repeat cl, if stable, may discharge to home. may consider vaginal progesterone although not sure if cl was < 20 mm <.= 24 wga. will try to obtain records. 2. MVP-s/p cardiology consult previously. expectant management. no increased mortality riskin , slight increase risk in morbidity. 2-5% risk of maternal cardiac event during . 3. h/o cs-for repeat unless otherewise indicated MILESTONE,AMREK VICKERS Nov 07, 2018 08:04
[2018-11-07] MEDS: PRENATAL VITAMIN PO SCH (09:17)
[2018-11-07] MEDS: FERROUS SULFATE (EC) 325 MG TAB PO SCH (09:17)
[2018-11-07] MEDS: MICONAZOLE 2% 30 GM CR TOP SCH (23:23)
[2018-11-08] MEDS: FERROUS SULFATE (EC) 325 MG TAB PO SCH (08:20)
[2018-11-08] MEDS: PRENATAL VITAMIN PO SCH (08:20)
[2018-11-08] MEDS: MICONAZOLE 2% 30 GM CR TOP SCH ×2 (09:00→20:32)
--- NOTE | 2018-11-08 19:10 | QN ---
Documentation Comment no c/o pelvic pain EFM no uterine activities CAT I CVL 1.1 with funneling A IUP 30w4d S/P Mg and BMZ P Jaimie will reevaluate at 31weeks SRAVAN HUNT MD Nov 08, 2018 19:10
[2018-11-09] MEDS: PRENATAL VITAMIN PO SCH (08:56)
[2018-11-09] MEDS: DOCUSATE SODIUM 100 MG CAP PO PRN (08:56)
[2018-11-09] MEDS: FERROUS SULFATE (EC) 325 MG TAB PO SCH (08:56)
[2018-11-09] MEDS: MICONAZOLE 2% 30 GM CR TOP SCH (21:00)
[2018-11-10] MEDS: FERROUS SULFATE (EC) 325 MG TAB PO SCH (09:30)
[2018-11-10] MEDS: PRENATAL VITAMIN PO SCH (09:30)
[2018-11-10] MEDS: MICONAZOLE 2% 30 GM CR TOP SCH ×2 (09:31→21:20)
--- NOTE | 2018-11-10 13:17 | QN ---
Documentation Comment 31+wks GA with short cervix and PTL NST reassuring for GA [place] No CTXs Pelvic Deferred --->Close Observation --->Close Monitoring -->Management as per Perinatologist KINJAL OLIVO M.D. Nov 10, 2018 13:17
--- NOTE | 2018-11-10 17:55 | QN ---
Documentation Comment Late entry note 11/09/2018 no pelvic pain, no CTXs No VB +Fm EFM FHR CAT 1 toco none A IUP 30+ weeks Short cervix/ PTL CVL 1.1 with funneling S/P Mg and BMZ P dory will reevaluate at 31 weeks FREDERIC BECKETT MD Nov 10, 2018 17:55
[2018-11-11] MEDS: PRENATAL VITAMIN PO SCH (08:02)
[2018-11-11] MEDS: FERROUS SULFATE (EC) 325 MG TAB PO SCH (08:02)
[2018-11-11] MEDS: DOCUSATE SODIUM 100 MG CAP PO PRN (08:02)
--- NOTE | 2018-11-11 12:08 | PN ---
Date/Time of Note Date/Time of Note DATE: 11/11/18 TIME: 12:03 OB Subjective Subjective Subjective Subjective Patient without complaints. Denies lof or vb. vs 92/48 abd gravid nttp ext nttp sve fingertip/75%/floating medium/posterior previously, today 2/75/floating us 11/11/18 CL 1.2 cm toco q 5 min Assessment/Plan: 1. w/ short cervix at 31 wga-s/p ancs/magnesium sulfate/mfm/neonatology consults. expectant management until 31 with repeat cl, stable however she now meets criteria for labor and cannot be discharged to home. patient thoroughly counseled regarding stay in hospital for safety of herself and fetus but declined and wanted to sign out against medical advised. RN in room during discussion. plan was to discuss with perinatology and course for gbs ppx, neuroprotection and tocolytic, however, patient declines in house management at this time. advised to make an appointment for clinic for 11/12/18. 2. MVP-s/p cardiology consult previously. expectant management. no increased mortality riskin , slight increase risk in morbidity. 2-5% risk of maternal cardiac event during . 3. h/o cs-for repeat unless otherwise indicated MILESTONE,MAREK VICKERS Nov 11, 2018 12:08
== END 2018-11-11 14:30 | disposition left against medical advice (07) | DRG 831 ==
LOC: OBT 18:57 → L-D 18:58 → OBT 22:04 → L-D 22:04 → PP1 10-28 09:55
PROVIDERS: ADMIT Obstetrics & Gynecology; ATTEND Obstetrics & Gynecology
DX: O26.873 Cervical shortening, third trimester (principal); O60.03 Preterm labor without delivery, third trimester; O99.413 Diseases of the circulatory system complicating pregnancy, third trimester; O34.219 Maternal care for unspecified type scar from previous cesarean delivery; O23.593 Infection of other part of genital tract in pregnancy, third trimester; N76.0 Acute vaginitis; I34.1 Nonrheumatic mitral (valve) prolapse; B96.89 Other specified bacterial agents as the cause of diseases classified elsewhere; Z3A.28 28 weeks gestation of pregnancy
CPT/HCPCS: 76815; 76817; 76818; 80053; 81003; 83735; 85025; 86850; 86900; 86901; 87210; G0463; J0290; J0702; J3475; J7120

== ENCOUNTER 2018-11-14 02:20 | Inpatient (IN) | payer MEDICAID ==
[~2018-11-14] VITALS: Ht 154.9 cm; Wt 62.1 kg
[2018-11-14 02:36] VITALS: Ht 154.9 cm; Wt 62.1 kg
[2018-11-14 02:37] VITALS: BP 115/76; PULSE 85; RESP 16
[2018-11-14] MEDS ORDERED: LACTATED RINGER'S 1,000 ML IV SCH (03:00)
[2018-11-14] MEDS ORDERED: LACTATED RINGER'S 1,000 ML IV ONE (03:00)
[2018-11-14] MEDS ORDERED: MAGNESIUM SULFATE 20 GM/500 ML 500 ML IV SCH (04:49)
[2018-11-14] MEDS ORDERED: AMPICILLIN 2 GM/NS (PMX) 100 ML IV ONE (05:00)
[2018-11-14] MEDS ORDERED: MAGNESIUM SULFATE 4 GM/100 ML 100 ML IV ONE (05:00)
[2018-11-14] MEDS: MAGNESIUM SULFATE 20 GM/500 ML 500 ML IV SCH ×2 (05:22→17:11)
[2018-11-14] MEDS: LACTATED RINGER'S 1,000 ML IV SCH ×2 (05:22→20:27)
[2018-11-14] MEDS: BETAMET NA PHOS/AC(6 MG/ML) 2 ML INJ SYG IM SCH (05:43)
[2018-11-14] MEDS: AMPICILLIN 1 GM/NS (PMX) 50 ML IV SCH ×4 (09:27→21:49)
[2018-11-14] MEDS: PRENATAL VITAMIN PO SCH (09:27)
[2018-11-15] MEDS: AMPICILLIN 1 GM/NS (PMX) 50 ML IV SCH ×6 (01:46→21:18)
[2018-11-15] MEDS: MAGNESIUM SULFATE 20 GM/500 ML 500 ML IV SCH ×2 (03:33→14:02)
[2018-11-15] MEDS: BETAMET NA PHOS/AC(6 MG/ML) 2 ML INJ SYG IM SCH (05:25)
[2018-11-15] MEDS: PRENATAL VITAMIN PO SCH (09:09)
[2018-11-15] MEDS: LACTATED RINGER'S 1,000 ML IV SCH (14:00)
[2018-11-16] MEDS: MAGNESIUM SULFATE 20 GM/500 ML 500 ML IV SCH (00:18)
[2018-11-16] MEDS: AMPICILLIN 1 GM/NS (PMX) 50 ML IV SCH ×2 (01:05→05:02)
[2018-11-16] MEDS: LACTATED RINGER'S 1,000 ML IV SCH ×2 (05:05→15:36)
[2018-11-16] MEDS: PRENATAL VITAMIN PO SCH (08:52)
[2018-11-17] MEDS: LACTATED RINGER'S 1,000 ML IV SCH ×3 (00:29→21:20)
[2018-11-17] MEDS: PRENATAL VITAMIN PO SCH (09:19)
[2018-11-18] MEDS: LACTATED RINGER'S 1,000 ML IV SCH (05:38)
[2018-11-18] MEDS: PRENATAL VITAMIN PO SCH (09:09)
== END 2018-11-18 13:43 | disposition home or self-care (01) | DRG 832 ==
LOC: OBT 02:20 → L-D 02:20 → OBT 04:50 → L-D 22:30
PROVIDERS: ADMIT Obstetrics & Gynecology; ATTEND Obstetrics & Gynecology
DX: O46.93 Antepartum hemorrhage, unspecified, third trimester (principal); N13.30 Unspecified hydronephrosis; O99.89 Other specified diseases and conditions complicating pregnancy, childbirth and the puerperium; O26.893 Other specified pregnancy related conditions, third trimester; Z3A.32 32 weeks gestation of pregnancy
CPT/HCPCS: 36415; 76775; 76817; 76818; 80053; 81001; 83735; 83789; 84112; 85025; 85384; 85610; 85730; 86850; 86900; 86901; 96360; 96361; G0463; J0290; J0702; J3475; J7120